=== PATIENT | female | born 1985 | race Caucasian/White ===

== ENCOUNTER 2017-01-28 08:41 | Emergency (ER) | payer OTHER ==
[~2017-01-28] VITALS: Ht 157.5 cm; Wt 72.0 kg
[2017-01-28 08:44] VITALS: TEMP 36.9; Ht 157.5 cm; Wt 72.0 kg
[2017-01-28] MEDS ORDERED: BUPIVACAINE/EPINEPHRINE 0.5% 1:200,000 1.8 ML CARP INFIL ONE (09:15)
[2017-01-28] MEDS ORDERED: CLIN300C2 PO ×2 (09:20→09:54)
[2017-01-28] MEDS ORDERED: IBUP-1450 PO (09:20)
[2017-01-28] MEDS ORDERED: ACET-1256 PO (09:20)
[2017-01-28] MEDS ORDERED: IBUP-1451 PO (09:54)
[2017-01-28] MEDS ORDERED: ONDA4TAB65 PO (09:54)
[2017-01-28 10:04] VITALS: BP 138/78; PULSE 84; O2SAT 100
--- NOTE | 2017-01-28 17:11 | EMERGENCY ROOM VISIT NOTE ---
ED Visit Note First contact with patient: 08:57 CHIEF COMPLAINT: Right lower Dental pain HISTORY OF PRESENT ILLNESS: This 31-year-old white female patient has had a progressive toothache for 2 days. She denies any trauma. The pain is now steady and severe and radiates to the right cheek. She has been unable to see a dentist. Denies facial swelling, chills, sweats, or fever. No nausea or vomiting. She does have a foul taste. Pain is 10/10 patient states she was at [facility] 2 weeks ago for similar symptoms. She started herself on some leftover clindamycin 300 mg and is currently on day 2. She states she has tried to see a dentist and has even offered to pay henriquez. She states the waiting list is 1 year. 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 She states she does not want any narcotic medication if possible. She states she is taking ibuprofen 600 mg every 3 hours and Tylenol 500 mg every 6 hours without relief. REVIEW OF SYSTEMS: Head: No headache, injury or neck pain. Throat: No sore throat, dysphagia, or hoarseness. Neck: No stiffness, or swelling. Respiratory: No cough, change in sputum, wheezes, hemoptysis, shortness of breath, or stridor. PMH: Supplemental sheet was not completed. Previous Surgeries: None Medical history: Current methadone treatment Family history: Noncontributory Current medications: Methadone, Tylenol, Motrin Allergies: Latex, Demerol, tramadol SOCIAL HISTORY: Patient lives at home with her child. No EtOH use. Former narcotic and heroin addict. PHYSICAL EXAM: Vital Signs: Afebrile. Reviewed and filed in patient's chart. General: Well-developed, well-nourished, young white female, in no acute distress. She does appear in some discomfort. She is sitting on a bed. Alert and oriented. Skin: Warm and dry with good turgor. No rashes. Acne and acne scarring are present. No ecchymosis or erythema. The patient is not diaphoretic. No abrasions. HEENT: Normocephalic atraumatic. Eyes PERRLA, EOMI. No conjunctiva or scleral injection. Nares patent bilaterally without turbinate enlargement. No significant drainage. No epistaxis. Oropharynx without erythema or exudate. Uvula midline, oral mucosa moist. Tongue is pierced. No lesions present. The tooth in question, the right lower molar, is very carious and the gum tissue is tender around it. Mild edema but no pointing. It is nonfluctuant. Tooth is not loose. There is no facial swelling , cervical or submandibular lymphadenopathy. DIAGNOSIS: Right lower Dental pain DISCHARGE INSTRUCTIONS & TREATMENT: The patient was educated regarding today's findings. Conservative care measures were discussed. Additional prescription for 8 days of clindamycin 300 mg 3 times a day was provided. She was also given a prescription for Zofran 4 mg which she takes with the clindamycin due to nausea. She was also prescribed ibuprofen 800 mg to be used 3 times a day. She was cautioned about using this too frequently and causing renal injury. Option of injecting the gumline was discussed. She would like to proceed with this. I did use 2 separate carpi Jets of Marcaine with epinephrine to numb the lateral, medial, and posterior side of the tooth. She verbalized relief of her pain. See a dentist as soon as possible for definitive care. She was provided a number of dentists in the [place] area to try. Saltwater gargles after every meal. Continue Orajel or oil of clove for breakthrough pain. Toothache handout was provided. She was reassured that I do not suspect drainable dental abscess at this time. Current/Historical Medications Scheduled Clindamycin Hcl (Cleocin), 300 MG PO TID Clindamycin Hcl (Cleocin), 1 CAP PO TID Scheduled PRN Acetaminophen (Tylenol), 500 MG PO Q6 PRN for Pain Ibuprofen (Motrin), 1,200 MG PO Q3H PRN for Pain Ibuprofen Tab (Motrin), 800 MG PO Q8H PRN for Pain Ondansetron Hcl (Zofran), 1 TAB PO Q8 PRN for Nausea or Vomiting Allergies Coded Allergies: Meperidine (Verified Allergy, Intermediate, "I can't function. Knocks me out. Shakey", 01/28/17) Tramadol (Verified Allergy, Intermediate, "vomiting", 01/28/17) Latex (Verified Allergy, Mild, Rash, 01/28/17) Vital Signs Date Time Temp Pulse Resp B/P Pulse Ox O2 Delivery O2 Flow Rate FiO2 01/28/17 10:04 84 16 138/78 100 01/28/17 08:44 36.9 83 18 144/91 100 Room Air Departure Information Impression Primary Impression: Toothache Additional Impression: Dental decay Dispostion Home / Self-Care Prescriptions Ibuprofen Tab (MOTRIN) 800 Mg Tab 800 MG PO Q8H Y for Pain, #24 TAB Prov: Drew Diaz,P.A. 01/28/17 Ondansetron Hcl (ZOFRAN) 4 Mg Tab 1 TAB PO Q8 Y for Nausea or Vomiting, #24 TAB Prov: Drew Diaz,P.A. 01/28/17 Clindamycin Hcl (CLEOCIN) 300 Mg Cap 1 CAP PO TID for 8 Days, #24 CAP Prov: Drew Diaz,P.A. 01/28/17 Referrals Rodrick Sands D.M.D. Forms HOME CARE DOCUMENTATION FORM, TYLENOL USE, IMPORTANT VISIT INFORMATION Patient Instructions My [facility] Additional Instructions Call Viky arcos or Dr. Sands to discuss tooth extraction ibuprofen 800 mg every 8 hours as needed for dental pain-do not take this medication more frequently, as it may lead to GI bleeding and renal issues Add Tylenol 650 mg every 6 hours for breakthrough pain Continue clindamycin 300 mg 3 times a day for a total of 10 days Use the Zofran every 8 hours as needed for nausea Continue saltwater gargles and brushing your teeth Problem Qualifiers
== END 2017-01-28 10:05 | disposition home or self-care (01) ==
LOC: C.EDB 08:42 → C.EDA 10:05
DX: K08.89 Other specified disorders of teeth and supporting structures (principal); K02.9 Dental caries, unspecified; Z79.899 Other long term (current) drug therapy; Z88.8 Allergy status to other drugs, medicaments and biological substances; Z91.040 Latex allergy status